=== PATIENT | female | born 1975 | race Caucasian/White ===

== ENCOUNTER 2020-06-12 10:02 | Emergency (ER) | payer BC ==
[2020-06-12] MEDS ORDERED: Cyclobenzaprine 10 MG Tab PO ONE (10:50)
[2020-06-12] MEDS ORDERED: Ketorolac 60 MG/2 ML SDV IM ONE (10:50)
--- NOTE | 2020-06-12 10:52 | EDM.PDOC ---
ED HPI GENERAL MEDICAL PROBLEM - General Chief Complaint: Back Pain or Injury Stated Complaint: BOTH LEGS FEEL NUMB Time Seen by Provider: 06/12/20 10:46 Source of Information: Reports: Patient, RN Notes Reviewed History Limitations: Reports: No Limitations - History of Present Illness INITIAL COMMENTS - FREE TEXT/NARRATIVE: 45-year-old female presents emergency department a complaint of low back pain, she states she awoke this morning pain so severe she has difficulty standing or ambulating. 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: - Past Surgical History HEENT Surgical History: Reports: Adenoidectomy, Myringotomy w Tube(s) Female Surgical History: Reports: Section, Hysterectomy Social & Family History - Tobacco Use Smoking Status *Q: Never Smoker - Recreational Drug Use Recreational Drug Use: No ED ROS GENERAL - Review of Systems Review Of Systems: See Below GI/Abdominal: Reports: No Symptoms Musculoskeletal: Reports: Back Pain ED EXAM,LOWER BACK PAIN/INJURY - Physical Exam Exam: See Below Exam Limited By: No Limitations General Appearance: Alert, WD/WN, No Apparent Distress Respiratory/Chest: No Respiratory Distress Back Exam: Normal Inspection (Just living the dream), Decreased Range of Motion, Muscle Spasm, Paraspinal Tenderness. No: CVA Tenderness (R), CVA Tenderness (L), Vertebral Tenderness Course - Vital Signs Last Recorded V/S: Last Vital Signs Temp 98.6 F 06/12/20 10:33 Pulse 88 06/12/20 10:33 Resp 12 06/12/20 10:33 BP 152/89 H 06/12/20 10:33 Pulse Ox 99 06/12/20 10:33 - Orders/Labs/Meds Meds: Medications Discontinued Medications Generic Name Dose Route Start Last Admin Trade Name Freq PRN Reason Stop Dose Admin Cyclobenzaprine HCl 10 mg 06/12/20 10:50 06/12/20 11:05 Flexeril PO 06/12/20 10:51 10 mg ONETIME ONE Administration Hydromorphone HCl 1 mg 06/12/20 12:37 06/12/20 12:47 Dilaudid IM 06/12/20 12:38 1 mg ONETIME ONE Administration Ketorolac Tromethamine 60 mg 06/12/20 10:50 06/12/20 11:05 Toradol IM 06/12/20 10:51 60 mg ONETIME ONE Administration Departure - Departure Time of Disposition: 12:59 Disposition: Home, Self-Care 01 Condition: Fair Clinical Impression: Low back pain Qualifiers: Chronicity: acute Back pain laterality: right Sciatica presence: without sciatica Qualified Code(s): M54.5 - Low back pain - Discharge Information Instructions: Acute Back Pain, Adult Referrals: PCP,None [Primary Care Provider] - Forms: ED Department Discharge Additional Instructions: Try the prednisone 2 tablet once a day for the next 5 days, please followup with your primary care provider in 3-5 days if not better, please call return to the emergency department with worsening of symptoms. Sepsis Event Note (ED) - Evaluation Sepsis Screening Result: No Definite Risk - Focused Exam Vital Signs: Vital Signs Temp Pulse Resp BP Pulse Ox 06/12/20 10:33 98.6 F 88 12 152/89 H 99 - Assessment/Plan Plan: Assessment Acuity = acute Site and laterality = low back pain Etiology = probably from lifting injury Manifestations = none Location of injury = Home Lab values = none Plan Had some improvement combination Flexeril and Toradol, significant improvement with hydromorphone, discharged home with prednisone 20 mg once a day for 5 days will follow-up with primary care upon return home This note was dictated using [employer] voice recognition software please call with any questions on syntax or grammar.
[2020-06-12] MEDS ORDERED: HYDROmorphone 1 MG/ML Syringe IM ONE (12:37)
== END 2020-06-12 13:27 | disposition home or self-care (01) ==
LOC: JP.ED 10:02
DX: M54.5 Low back pain (principal); Z88.2 Allergy status to sulfonamides
CPT/HCPCS: 96372; 99283; A9270; J1170; J1885

== ENCOUNTER 2021-07-10 10:00 | Emergency (ER) | payer BC ==
--- NOTE | 2021-07-10 10:33 | EDM.PDOC ---
ED HPI GENERAL MEDICAL PROBLEM - General Chief Complaint: Chest Pain Stated Complaint: POSSIBLE MILD HEARTATTACK Time Seen by Provider: 07/10/21 10:15 Source of Information: Reports: Patient, Family History Limitations: Reports: No Limitations - History of Present Illness INITIAL COMMENTS - FREE TEXT/NARRATIVE: 46-year-old female was sitting at her desk when she developed a fairly sudden onset of substernal chest pain, very sharp in nature and radiating up into her jaw. No shortness of breath, mild nausea but no vomiting, no diaphoresis. She had something similar a month and a half ago but it resolved, it lasted about 10 to 15 minutes. She is active but does not regularly exercise, she is not a smoker. She has not had cardiac work-ups in the past, generally she is healthy. She has chronic reflux and has a hiatal hernia. The pain is now negligible. She describes it as a "1". Onset: Sudden Duration: Hour(s): (1-1/2 hours ago) Location: Reports: Chest Quality: Reports: Sharp, Stabbing Associated Symptoms: Reports: Chest Pain. 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 Denies: Shortness of Breath Cardiovascular: Reports: Chest Pain GI/Abdominal: Reports: Nausea. Denies: Abdominal Pain, Vomiting ED EXAM, GENERAL - Physical Exam Exam: See Below Exam Limited By: No Limitations General Appearance: Alert, No Apparent Distress Eye Exam: Bilateral Eye: Normal Inspection (Well hydrated, no jaundice) Head: Atraumatic Neck: Supple, Non-Tender Respiratory/Chest: Lungs Clear, Other (I cannot reproduce pain with chest wall palpation) Cardiovascular: Regular Rate, Rhythm. No: Tachycardia, Extra Beats GI/Abdominal: Normal Bowel Sounds, Soft, Non-Tender Extremities: Normal Inspection. No: Pedal Edema Neurological: Alert, Oriented Psychiatric: Normal Affect, Normal Mood Skin Exam: Warm, Dry #1 Interpretation EKG Date: 07/10/21 Time: 10:30 Rhythm: NSR QRS: Normal ST-T: Normal Course - Vital Signs Last Recorded V/S: Last Vital Signs Temp 97.3 F 07/10/21 10:10 Pulse 88 07/10/21 10:10 Resp 20 07/10/21 10:10 BP 156/91 H 07/10/21 10:10 Pulse Ox 96 07/10/21 10:10 - Orders/Labs/Meds Orders: Active Orders 24 hr Category Date Time Status EKG 12 Lead [EK] Routine Ther 07/10/21 10:25 Ordered Labs: Laboratory Tests 07/10/21 Range/Units 10:36 Troponin I < 0.017 (0.000-0.056) ng/mL - Re-Assessments/Exams Free Text/Narrative Re-Assessment/Exam: 07/10/21 11:17 EKG was done on arrival was completely normal. Within another 5 to 10 minutes the patient's pain was gone without treatment. A troponin was drawn as she just had a full laboratory panel done last week for a yearly physical, this returned 0.0. The symptoms and presentation are more typical of an esophageal spasm and cardiac pain, I discussed this with the patient and encouraged her to continue with her antacid medication. [place] diet for the next day or 2 and increase activity and diet as tolerated. Departure - Departure Time of Disposition: 11:20 Disposition: Home, Self-Care 01 Clinical Impression: Esophageal spasm - Discharge Information Instructions: Esophageal Spasm Referrals: Linda Chapman CNM [Primary Care Provider] - Forms: ED Department Discharge Care Plan Goals: Increase diet slowly, bland diet for the next day or 2 may be helpful. Continue your current medications and activity as tolerated. Return anytime if pain is recurring especially persistent or you develop other concerns. Sepsis Event Note (ED) - Evaluation Sepsis Screening Result: No Definite Risk - Focused Exam Vital Signs: Vital Signs Temp Pulse Resp BP Pulse Ox 07/10/21 10:10 97.3 F 88 20 156/91 H 96 - My Orders Last 24 Hours: My Active Orders 07/10/21 10:25 EKG 12 Lead [EK] Routine - Assessment/Plan Last 24 Hours: My Active Orders 07/10/21 10:25 EKG 12 Lead [EK] Routine
== END 2021-07-10 11:27 | disposition home or self-care (01) ==
LOC: JP.ED 10:00
DX: K22.4 Dyskinesia of esophagus (principal); Z88.2 Allergy status to sulfonamides
CPT/HCPCS: 36415; 84484; 93005; 99284-25

== ENCOUNTER 2021-11-17 02:16 | Emergency (ER) | payer BC ==
[2021-11-17] MEDS ORDERED: Ketorolac 30 MG/ML SDV IM ONE (02:56)
== END 2021-11-17 05:36 | disposition home or self-care (01) ==
LOC: JP.ED 02:16
DX: N13.2 Hydronephrosis with renal and ureteral calculous obstruction (principal); K21.9 Gastro-esophageal reflux disease without esophagitis; Z88.2 Allergy status to sulfonamides; Z79.899 Other long term (current) drug therapy
CPT/HCPCS: 36415; 74176; 80048; 81001; 85025; 96372; 99284; 99285; J1885

== ENCOUNTER 2022-05-06 08:41 | Emergency (ER) | payer BC | END 2022-05-06 09:45 | disposition home or self-care (01) | LOC: JP.ED 08:41 | DX: U07.1 COVID-19 (principal); Z88.2 Allergy status to sulfonamides; Z79.899 Other long term (current) drug therapy; Z90.710 Acquired absence of both cervix and uterus | CPT/HCPCS: 99283; U0002 ==

== ENCOUNTER 2023-01-30 07:58 | Day surgery (SDC) | payer BC ==
[2023-01-30] MEDS ORDERED: fentaNYL 250 MCG/5 ML SDV ONE ×2 (08:19→11:15)
[2023-01-30] MEDS ORDERED: Ondansetron 4 MG/2 ML SDV ONE (08:19)
[2023-01-30] MEDS ORDERED: Neostigmine Methylsulfate 1 MG/ML 5 ML Syringe ONE (08:19)
[2023-01-30] MEDS ORDERED: Propofol 200 MG/20 ML SDV ONE (08:19)
[2023-01-30] MEDS ORDERED: Rocuronium 50 MG/5 ML Vial ONE (08:19)
[2023-01-30] MEDS ORDERED: Succinylcholine 200 MG/10 ML MDV ONE (08:19)
[2023-01-30] MEDS ORDERED: Dexamethasone 4 MG/ML SDV ONE (08:19)
[2023-01-30] MEDS ORDERED: Glycopyrrolate 0.2 MG/ML 5 ML MDV ONE (08:19)
[2023-01-30] MEDS ORDERED: Sodium Chloride 0.9% 1,000 ML IV SCH (08:30)
[2023-01-30] MEDS ORDERED: Lactated Ringers 1,000 ML IV SCH (08:30)
[2023-01-30] MEDS ORDERED: Acetaminophen 500 MG Tab PO ONE ×2 (08:30→15:05)
[2023-01-30] MEDS ORDERED: Indocyanine Green 25 MG SDV IV ONE (08:30)
[2023-01-30] MEDS ORDERED: cefTRIAXone 2 GM in Sodium Chloride 0.9% 50 ML IV ONE (09:00)
[2023-01-30] MEDS ORDERED: cefTRIAXone 1 GM Vial IM ONE (09:00)
[2023-01-30] MEDS ORDERED: metroNIDAZOLE/Normal Saline 500 MG in Premix Bag 1 BAG IV ONE (09:00)
[2023-01-30] MEDS ORDERED: Bupivacaine 0.5%/EPINEPHrine 1:200,000 50 ML MDV ONE (09:43)
[2023-01-30] MEDS ORDERED: Labetalol 20 MG/4 ML Syringe ONE (11:55)
[2023-01-30] MEDS ORDERED: hydrOXYzine HCl 50 MG/ML SDV IM ONE (13:15)
== END 2023-01-30 15:45 | disposition home or self-care (01) ==
LOC: JP.SDS 07:58
PROVIDERS: ATTEND Student in an Organized Health Care Education/Training Program
DX: K81.1 Chronic cholecystitis (principal); K82.8 Other specified diseases of gallbladder; G43.909 Migraine, unspecified, not intractable, without status migrainosus; I10 Essential (primary) hypertension; K21.9 Gastro-esophageal reflux disease without esophagitis; F32.A Depression, unspecified; M54.9 Dorsalgia, unspecified; G89.29 Other chronic pain; Z79.899 Other long term (current) drug therapy; Z88.2 Allergy status to sulfonamides; Z88.5 Allergy status to narcotic agent
CPT/HCPCS: 47562; 88304; A9270; J0330; J0696; J1100; J2405; J2704; J2710; J3010; J3410; J3490; J7030

== ENCOUNTER 2023-08-12 07:29 | Emergency (ER) | payer BC ==
[2023-08-12] MEDS ORDERED: Ketorolac 30 MG/ML SDV IM ONE (08:15)
[2023-08-12] MEDS ORDERED: LORazepam 2 MG/ML SDV IM ONE (08:17)
[2023-08-12 08:50] LABS: APPEARANCE,URINE CLEAR (CLEAR); BILIRUBIN,URINE NEGATIVE (NEGATIVE); COLOR,URINE YELLOW (YELLOW); GLUCOSE,URINE NEGATIVE (NEGATIVE); KETONES,URINE NEGATIVE (NEGATIVE); LEUKOCYTE ESTERASE,URINE NEGATIVE (NEGATIVE); NITRITE,URINE NEGATIVE (NEGATIVE); OCCULT BLOOD,URINE TRACE-INTACT (NEGATIVE); PROTEIN,URINE NEGATIVE (NEGATIVE); UROBILINOGEN,URINE 0.2 EU/dL (0.2-1.0)
[2023-08-12 08:55] LABS: AMORPHOUS SEDIMENT,URINE NOT SEEN; BACTERIA,URINE FEW; EPITHELIAL CELLS,URINE FEW; MUCUS,URINE RARE; RBC,URINE 0-5 (0-5); WBC,URINE 0-5 (0-5)
[2023-08-12] MEDS ORDERED: HYDROmorphone 1 MG/ML Syringe IM ONE (09:37)
[2023-08-12] MEDS ORDERED: diphenhydrAMINE 25 MG Cap PO ONE (09:46)
[2023-08-12] MEDS ORDERED: Sodium Chloride 0.9% 1,000 ML IV STA (09:49)
[2023-08-12] MEDS ORDERED: HYDROmorphone 0.5 MG/0.5 ML Syringe IVPUSH ONE (09:50)
[2023-08-12] MEDS ORDERED: diphenhydrAMINE 50 MG/ML SDV IVPUSH ONE (09:51)
[2023-08-12] MEDS ORDERED: HYDROmorphone 0.5 MG/0.5 ML Syringe ONE (10:12)
== END 2023-08-12 13:30 | disposition home or self-care (01) ==
LOC: JP.ED 07:29
DX: M54.42 Lumbago with sciatica, left side (principal); I10 Essential (primary) hypertension; K21.9 Gastro-esophageal reflux disease without esophagitis; Z88.6 Allergy status to analgesic agent; Z88.2 Allergy status to sulfonamides; Z88.5 Allergy status to narcotic agent; Z79.899 Other long term (current) drug therapy
CPT/HCPCS: 72148; 81001; 96372; 96374; 96375; 99284; J1170; J1200; J1885; J2060; J7030

== ENCOUNTER 2025-02-08 06:26 | Day surgery (SDC) | payer BC ==
[2025-02-08] MEDS ORDERED: fentaNYL 100 MCG/2 ML SDV ONE (07:19)
[2025-02-08] MEDS ORDERED: Midazolam 1 MG/ML 2 ML SDV ONE (07:19)
[2025-02-08] MEDS ORDERED: Propofol 200 MG/20 ML SDV ONE (07:19)
[2025-02-08] MEDS: Lactated Ringers 1,000 ML IV SCH (07:30)
== END 2025-02-08 09:15 | disposition home or self-care (01) ==
LOC: JP.SDS 06:26
PROVIDERS: ATTEND Surgery
DX: R10.13 Epigastric pain (principal); K22.89 Other specified disease of esophagus; K21.9 Gastro-esophageal reflux disease without esophagitis; Z88.2 Allergy status to sulfonamides; Z88.8 Allergy status to other drugs, medicaments and biological substances
CPT/HCPCS: 00731; 43239; 88305; J2250; J2704; J3010; J7120; J1642